=== PATIENT | male | born 1990 | race Caucasian/White ===

== ENCOUNTER 2022-02-05 18:56 | Emergency (ER) | payer BC ==
[2022-02-05] MEDS ORDERED: Albuterol/Ipratropium 3.0-0.5 MG/3 ML Neb Soln NEB ONE (19:54)
[2022-02-05] MEDS ORDERED: Albuterol 6.7 GM Inhaler INH ONE (20:50)
== END 2022-02-05 21:10 | disposition home or self-care (01) ==
LOC: JD.ED 18:56
DX: J40 Bronchitis, not specified as acute or chronic (principal); Z20.822 Contact with and (suspected) exposure to COVID-19
CPT/HCPCS: 71045; 87635; 94640; 99285; A9270; J7620-GY; U0002